=== PATIENT | female | born 1990 | race Caucasian/White ===

== ENCOUNTER 2023-10-11 22:01 | Emergency (ER) | payer OTHER ==
[2023-10-11 22:09] VITALS: BMI 32.7
[2023-10-11] MEDS ORDERED: METOCLOPRAMIDE HCL INJECTION 10 MG/2 ML VIAL ONE (23:08)
[2023-10-11 23:12] LABS: EOS % 1.5 % (0-4.5); HEMATOCRIT 41.2 % (32.4-45.2); HEMOGLOBIN 13.7 GM/dL (10.7-15.3); LYMPH % 29.9 % (8-40); MCH 30.7 pg (25.7-33.7); MCHC 33.2 g/dl (32.0-36.0); MEAN CELL VOLUME 92.4 fl (80-96); MEAN PLT VOLUME 7.7 fl (7.5-11.1); MONO % 7.9 % (3.8-10.2); NEUT % 59.7 % (42.8-82.8); PLATELET COUNT 289 10^3/uL (134-434); RBC 4.46 M/mm3 (3.60-5.2); RDW 12.6 % (11.6-15.6); WHITE BLOOD COUNT 10.7 K/mm3 (4.0-10.0)
[2023-10-11] MEDS: METOCLOPRAMIDE HCL INJECTION 10 MG/2 ML VIAL IVPUSH ONE (23:19)
[2023-10-11] MEDS: LACTATED RINGERS SOLUTION 1000 ML INFUS.BAG IV ONE (23:19)
[2023-10-11 23:30] LABS: POTASSIUM 4.1 mmol/L (3.5-5.1)
[2023-10-11 23:32] LABS: CALCIUM 9.1 mg/dL (8.5-10.1)
[2023-10-11 23:33] LABS: ALBUMIN 3.6 g/dl (3.4-5.0); BLOOD UREA NITROGEN 14.1 mg/dL (7-18)
[2023-10-11 23:36] LABS: CREATININE 0.7 mg/dL (0.55-1.3)
[2023-10-11 23:37] LABS: BILIRUBIN,TOTAL 1.1 mg/dL (0.2-1)
[2023-10-11 23:38] LABS: TOT PROT 7.1 g/dl (6.4-8.2)
[2023-10-11] MEDS ORDERED: ACETAMINOPHEN INJECTION 100 ML IVPB ONE (23:43)
[2023-10-11 23:47] LABS: EPI CELLS >36 /uL (0-25.1); HYALINE CASTS 1 /uL (0-3.1); PH,URINE 5.5 (5.0-8.0); URINE APPEARANCE CLOUDY; URINE BACTERIA 431 /uL (0-1359); URINE BILIRUBIN NEGATIVE (NEGATIVE); URINE COLOR YELLOW; URINE GLUCOSE (UA) NEGATIVE (NEGATIVE); URINE KETONE NEGATIVE (NEGATIVE); URINE LEUK ESTERASE TRACE (NEGATIVE); URINE NITRITE NEGATIVE (NEGATIVE); URINE PROTEIN TRACE (NEGATIVE); URINE WBC 41 /uL (0-25.8)
[2023-10-11] MEDS: ACETAMINOPHEN 1000 MG/100 ML BAG IVPB ONE (23:48)
[2023-10-12 00:40] LABS: HCG,QUALITATIVE URINE Negative
[2023-10-12] MEDS ORDERED: PENICILLIN G BENZATHINE 1,200,000 UNIT/2 ML PFS IM ONE (00:47)
[2023-10-12] MEDS: PENICILLIN G BENZATHINE 1,200,000 UNIT/2 ML PFS IM ONE (00:54)
[2023-10-12 01:17] VITALS: BP 96/56; PULSE 73; RESP 18; TEMP 98
[2023-10-12 04:25] LABS: URINE RBC 20 /uL (0-23.9)
== END 2023-10-12 01:17 | disposition home or self-care (01) ==
LOC: JER 22:01
PROC: 3E033NZ Introduction of Analgesics, Hypnotics, Sedatives into Peripheral Vein, Percutaneous Approach (ICD-10-PCS; principal; 2023-10-11)
PROC: 3E033GC Introduction of Other Therapeutic Substance into Peripheral Vein, Percutaneous Approach (ICD-10-PCS; 2023-10-11)
PROC: 3E02329 Introduction of Other Anti-infective into Muscle, Percutaneous Approach (ICD-10-PCS; 2023-10-11)
DX: R59.0 Localized enlarged lymph nodes (principal); J02.0 Streptococcal pharyngitis; R51.9 Headache, unspecified; R22.0 Localized swelling, mass and lump, head
CPT/HCPCS: 36415; 70450-TC; 80053; 81003; 84703; 85025; 87651; 99284-25; J0131

== ENCOUNTER 2024-01-28 19:26 | Emergency (ER) | payer OTHER ==
[2024-01-28 19:51] VITALS: BP 114/80; PULSE 89; RESP 20; TEMP 98.8; BMI 32.1
[2024-01-28 22:14] LABS: THROAT:GRP A STREP NOT DETECTED (NOTDETECTED)
[2024-01-28] MEDS ORDERED: predniSONE 20 MG TABLET (UD) ONE (22:58)
[2024-01-28] MEDS: predniSONE 20 MG TABLET (UD) PO ONE (23:00)
== END 2024-01-29 00:06 | disposition home or self-care (01) ==
LOC: JERFT 19:26
DX: J40 Bronchitis, not specified as acute or chronic (principal); R05.9 Cough, unspecified; R09.81 Nasal congestion; H93.8X3 Other specified disorders of ear, bilateral; Z20.822 Contact with and (suspected) exposure to COVID-19
CPT/HCPCS: 0241U-QW; 71046-TC-FY; 84703; 87651; 99284-25

== ENCOUNTER 2025-02-20 20:34 | Inpatient (IN) | payer OTHER ==
[2025-02-20] MEDS ORDERED: ACETAMINOPHEN INJECTION 100 ML ONE (21:42)
[2025-02-20] MEDS: SODIUM CHLORIDE 1,000 ML IV STA (22:00)
[2025-02-20] MEDS: ACETAMINOPHEN 1000 MG/100 ML BAG IVPB ONE (22:01)
[2025-02-20 22:06] LABS: ABSOLUTE IMMATURE GRANULOCYTES 0.03 x10^3/uL (0.0-0.031); BASOPHILS # 0.07 x10^3/uL (0.01-0.08); EOSINOPHIL % 5.2 % (0.7-5.8); EOSINOPHILS # 0.56 x10^3/uL (0.04-0.36); MCHC 31.8 g/dl (32.2-35.5); MEAN CELL VOLUME 93.6 fl (79.4-94.8); MEAN PLT VOLUME 9.5 fl (9.4-12.3); MONOCYTE # 0.74 x10^3/uL (0.24-0.86); MONOCYTE % 6.9 % (4.7-12.5); RDW 15.5 % (12.1-16.8)
[2025-02-20 22:14] LABS: INR 1.09 (0.83-1.09); PROTHROMBIN TIME (PATIENT) 11.9 SEC (9.7-13.0)
[2025-02-20 22:31] LABS: GLUCOSE,RANDOM 81.0 mg/dL (74-106)
[2025-02-20 22:32] LABS: TOT PROT 7.6 g/dl (6.4-8.2)
[2025-02-20 22:33] LABS: CO2 24.0 mmol/L (21-32)
[2025-02-20 22:34] LABS: ALK PHOS 129.0 U/L (40-150)
[2025-02-20 22:37] LABS: SGOT/AST 25.0 U/L (5-34); SGPT/ALT 32.0 U/L (0-55)
[2025-02-20 22:38] LABS: CREATININE 0.78 mg/dL (0.55-1.3)
[2025-02-20 22:47] LABS: URINE APPEARANCE Clear; URINE BILIRUBIN Negative (NEGATIVE); URINE COLOR Yellow; URINE GLUCOSE (UA) Negative (NEGATIVE); URINE KETONE Negative (NEGATIVE); URINE LEUK ESTERASE Negative (NEGATIVE); URINE NITRITE Negative (NEGATIVE); URINE PROTEIN Negative (NEGATIVE); URINE UROBILINOGEN 0.2 mg/dL (0.2-1.0)
[2025-02-20 22:58] LABS: HCV DIAGNOSTIC IN-HOUSE W/RFLX NON-REACTIVE (NONREACTIVE); HIV INTERPRETATION NEGATIVE (NEGATIVE)
[2025-02-20] MEDS ORDERED: MORPHINE SULFATE 2 MG/ML SYRINGE ONE (23:14)
[2025-02-20] MEDS: morphine CARPU-JECT 2 MG/1 ML DISP.SYRIN IVPUSH ONE (23:20)
[2025-02-21] MEDS: morphine CARPU-JECT 4 MG/1 ML DISP.SYRIN IVPUSH ONE (00:21)
[2025-02-21] MEDS ORDERED: ONDANSETRON 4 MG/2 ML VIAL IVPUSH PRN ×2 (00:28→16:54)
[2025-02-21] MEDS: LACTATED RINGERS SOLUTION 1,000 ML IV SCH ×2 (00:51→21:27)
[2025-02-21 01:46] VITALS: BMI 42.6
[2025-02-21] MEDS: PIPERACILLIN/TAZOB 3.375 GM 3.375 GM in DEXTROSE 5%-WATER - 50 ML IVPB SCH (01:53)
[2025-02-21] MEDS: KETOROLAC TROMETHAMINE 15 MG/ML VIAL IVPUSH PRN ×2 (01:53→20:21)
[2025-02-21] MEDS ORDERED: PIPERACILLIN/TAZOB 3.375 GM 3.375 GM in DEXTROSE 5%-WATER - 50 ML IVPB SCH (02:00)
[2025-02-21] MEDS: morphine CARPU-JECT 2 MG/1 ML DISP.SYRIN IVPUSH ONE (02:26)
[2025-02-21 08:05] LABS: ABSOLUTE IMMATURE GRANULOCYTES 0.01 x10^3/uL (0.0-0.031); BASOPHILS # 0.04 x10^3/uL (0.01-0.08); EOSINOPHIL % 5.1 % (0.7-5.8); EOSINOPHILS # 0.46 x10^3/uL (0.04-0.36); MCHC 33.0 g/dl (32.2-35.5); MEAN CELL VOLUME 93.3 fl (79.4-94.8); MEAN PLT VOLUME 9.8 fl (9.4-12.3); MONOCYTE # 0.63 x10^3/uL (0.24-0.86); MONOCYTE % 7.0 % (4.7-12.5); RDW 15.3 % (12.1-16.8)
[2025-02-21 08:41] LABS: GLUCOSE,RANDOM 72.0 mg/dL (74-106); TOT PROT 6.4 g/dl (6.4-8.2)
[2025-02-21 08:42] LABS: CO2 23.0 mmol/L (21-32)
[2025-02-21 08:44] LABS: ALK PHOS 111.0 U/L (40-150)
[2025-02-21 08:46] LABS: ACTIVATED PTT 31.4 SECONDS (25.2-36.5); INR 1.06 (0.83-1.09); PROTHROMBIN TIME (PATIENT) 11.7 SEC (9.7-13.0)
[2025-02-21 08:47] LABS: CREATININE 0.67 mg/dL (0.55-1.3); SGOT/AST 19.0 U/L (5-34); SGPT/ALT 25.0 U/L (0-55)
[2025-02-21] MEDS: ACETAMINOPHEN 1000 MG/100 ML BAG IVPB PRN (14:17)
[2025-02-21] MEDS ORDERED: MIDAZOLAM HCL 2 MG/2 ML SINGLE DOSE VIAL ONE (15:10)
[2025-02-21] MEDS ORDERED: LIDOCAINE HCL/PF 2% SDV 5ML VIAL ONE (15:11)
[2025-02-21] MEDS ORDERED: BUPIVACAINE HCL/PF 0.25% (2.5MG/ML) 10 ML VIAL ONE ×2 (15:15→15:27)
[2025-02-21] MEDS ORDERED: INDOCYANINE GREEN 25 MG/10 ML VIAL IVPUSH ONE (15:15)
[2025-02-21] MEDS ORDERED: cefOXitin SODIUM 2 GM VIAL (RESTRICTED TO ID) IVPB ONE (15:15)
[2025-02-21] MEDS ORDERED: HEPARIN NA (PORCINE) 5,000 UNITS/ML 1ML VIAL ONE (15:15)
[2025-02-21] MEDS ORDERED: ONDANSETRON 4 MG/2 ML VIAL ONE (16:18)
[2025-02-21] MEDS ORDERED: DEXAMETHASONE SOD PHOSPHATE 4 MG/1 ML VIAL ONE (16:18)
[2025-02-21] MEDS ORDERED: METOCLOPRAMIDE HCL INJECTION 10 MG/2 ML VIAL ONE (16:18)
[2025-02-21] MEDS ORDERED: PROPOFOL 20 ML ONE ×2 (16:19→17:16)
[2025-02-21] MEDS ORDERED: PROPOFOL 60 ML ONE (16:29)
[2025-02-21] MEDS: cefOXitin SODIUM 2 GM VIAL (RESTRICTED TO ID) IVPB ONE ×2 (16:46)
[2025-02-21] MEDS: BUPIVACAINE HCL/PF 0.25% (2.5MG/ML) 10 ML VIAL IJ ONE ×2 (16:49)
[2025-02-21] MEDS ORDERED: ACETAMINOPHEN 1000 MG/100 ML BAG IVPB PRN (16:54)
[2025-02-21] MEDS ORDERED: SUGAMMADEX SODIUM 200 MG/2 ML VIAL ONE (17:41)
[2025-02-21] MEDS ORDERED: KETOROLAC TROMETHAMINE 30 MG/1 ML VIAL ONE (17:51)
[2025-02-22] MEDS: PIPERACILLIN/TAZOB 3.375 GM 3.375 GM in DEXTROSE 5%-WATER - 50 ML IVPB ONE (00:07)
[2025-02-22 07:52] LABS: ABSOLUTE IMMATURE GRANULOCYTES 0.04 x10^3/uL (0.0-0.031); BASOPHILS # 0.01 x10^3/uL (0.01-0.08); EOSINOPHIL % 0.0 % (0.7-5.8); EOSINOPHILS # 0.00 x10^3/uL (0.04-0.36); MCHC 32.9 g/dl (32.2-35.5); MEAN CELL VOLUME 91.8 fl (79.4-94.8); MEAN PLT VOLUME 9.5 fl (9.4-12.3); MONOCYTE # 0.34 x10^3/uL (0.24-0.86); MONOCYTE % 3.9 % (4.7-12.5); RDW 14.5 % (12.1-16.8)
[2025-02-22 08:12] LABS: GLUCOSE,RANDOM 94.0 mg/dL (74-106)
[2025-02-22 08:13] LABS: TOT PROT 6.9 g/dl (6.4-8.2)
[2025-02-22 08:14] LABS: CO2 21.0 mmol/L (21-32)
[2025-02-22 08:15] LABS: ALK PHOS 116.0 U/L (40-150)
[2025-02-22 08:18] LABS: CREATININE 0.67 mg/dL (0.55-1.3); SGOT/AST 22.0 U/L (5-34); SGPT/ALT 25.0 U/L (0-55)
[2025-02-22 11:18] VITALS: BP 112/60; PULSE 81; RESP 18; TEMP 97.9
== END 2025-02-22 13:06 | disposition home or self-care (01) | DRG 263 ==
LOC: JER 20:34 → JERBED 23:59 → J7W 02-21 01:30
PROVIDERS: ADMIT Family Medicine; ATTEND Family Medicine
PROC: 8E0W4CZ Robotic Assisted Procedure of Trunk Region, Percutaneous Endoscopic Approach (ICD-10-PCS; 2025-02-21)
PROC: 0FT44ZZ Resection of Gallbladder, Percutaneous Endoscopic Approach (ICD-10-PCS; principal; 2025-02-21 16:08)
DX: K80.00 Calculus of gallbladder with acute cholecystitis without obstruction (principal); R19.7 Diarrhea, unspecified
CPT/HCPCS: 36415; 76705-TC; 80053; 80076; 81003; 83690; 83735; 84100; 84703; 85025; 85610; 85730; 86803; 86850; 86900; 86901; 87086; 87389; 88304-TC; 93005; 93010; 94010; 94760; 99285-25